=== PATIENT | female | born 1990 | race Caucasian/White ===

== ENCOUNTER 2019-02-10 23:37 | Inpatient (IN) | payer MEDICAID ==
[~2019-02-10] VITALS: Ht 157.5 cm; Wt 87.5 kg
[2019-02-11] MEDS ORDERED: HYDROmorphone 1 MG/ML AMP IVP PRN (00:45)
[2019-02-11] MEDS ORDERED: ONDANSETRON 4 MG/2 ML VIAL IVP PRN ×3 (00:45→12:00)
[2019-02-11] MEDS: LACTATED RINGERS 1,000 ML IV SCH ×2 (01:27→08:46)
[2019-02-11] MEDS ORDERED: CALC500C17 PO (02:04)
[2019-02-11] MEDS ORDERED: FERR-252 PO (02:05)
[2019-02-11] MEDS ORDERED: METHYLERGONOVINE 0.2 MG/ML AMP IM PRN ×2 (02:10→13:15)
[2019-02-11] MEDS ORDERED: PROMETHAZINE 25 MG/ML VIAL IVP PRN ×2 (02:10→18:45)
[2019-02-11] MEDS ORDERED: LACTATED RINGERS 500 ML IV ONE (02:10)
[2019-02-11] MEDS ORDERED: OXYTOCIN 10 UNITS/ML VIAL IM SCH (02:10)
[2019-02-11] MEDS ORDERED: NALBUPHINE 10 MG/ML AMP IVP PRN ×2 (02:10→12:00)
[2019-02-11 03:55] LABS: BASOPHILS % (AUTO) 0.1 % (0.0-2.0); EOSINOPHILS # (AUTO) 0.1 K/uL (0-0.4); HEMOGLOBIN 7.8 g/dL (12.0-16.0); MONOCYTES # (AUTO) 0.7 K/uL (0.8-1.0); RED BLOOD CELL COUNT(AUTO) 3.55 MIL/uL (4.20-5.40); WHITE BLOOD COUNT (AUTO) 11.8 K/uL (4.8-10.8)
[2019-02-11] MEDS ORDERED: AMPICILLIN 1,000 MG in NACL 0.9% MINI-BAG PLUS 50 ML SCH (04:00)
[2019-02-11] MEDS ORDERED: AMPICILLIN 1,000 MG in NACL 0.9% MINI-BAG PLUS 50 ML IVP SCH (04:00)
[2019-02-11 04:11] LABS: EOSINOPHILS % (AUTO) 0.7 % (0.0-4.0); LYMPHOCYTES # (AUTO) 1.6 K/uL (2.5-16.5); MEAN CORPUSCULAR HEMOGLOBIN 22 pg (27-31); MEAN CORPUSCULAR HGB CONC 31 g/dL (33-37); MEAN CORPUSCULAR VOLUME 70.5 fL (80-94); MONOCYTES % (AUTO) 5.5 % (1.7-9.3); NEUTROPHILS # (AUTO) 9.4 K/uL (1.8-7.7); NEUTROPHILS % (AUTO) 79.7 % (42.2-75.2); PLATELET COUNT (AUTO) 289 K/uL (140-450); RED CELL DISTRIBUTION WIDTH 20.2 % (11.6-13.7)
[2019-02-11 04:31] LABS: ALBUMIN 2.1 g/dL (3.4-5.0); ANION GAP 13.6 (8-16); CARBON DIOXIDE 21.9 mmol/L (21-32); CREATININE 0.4 mg/dL (0.6-1.3); POTASSIUM 3.5 mmol/L (3.5-5.1); TOTAL BILIRUBIN 0.2 mg/dL (0.0-1.0)
[2019-02-11 04:45] LABS: APPEARANCE,URINE HAZY (CLEAR); BILIRUBIN,URINE NEGATIVE (NEGATIVE); BLOOD, URINE NEGATIVE (NEGATIVE); COLOR,URINE YELLOW (YELLOW); LEUKOCYTE ESTERASE ,URINE NEGATIVE (NEGATIVE); NITRITE, URINE NEGATIVE (NEGATIVE); PH,URINE 6.5 (5.0-9.0); UGLUCOSE NEGATIVE (NEGATIVE)
[2019-02-11 04:55] LABS: RBC,URINE 0-5 /HPF (0-5)
[2019-02-11 06:12] LABS: BARBITURATE, URINE NEG. ng/ml (NEG <=200); BENZODIAZEPINE, URINE NEG. ng/mL (NEG <=200); CANNABINOID, URINE NEG. ng/mL (NEG <=50); COCAINE, URINE NEG. ng/mL (NEG <=300); OPIATE, URINE NEG. ng/mL (NEG <=2000); PHENCYCLIDINE SCREEN,URINE NEG. ng/mL (NEG <=25)
--- NOTE | 2019-02-11 06:43 | NUR ---
PATIENT HAS BEEN SCREENED AND CATEGORIZED LOW NUTRITION RISK. PATIENT WILL BE SEEN WITHIN 7 DAYS OF ADMISSION. 02/17/19 ANALI GIBSON MS, RDN
[2019-02-11 08:13] VITALS: BP 125/76
[2019-02-11] MEDS ORDERED: TERBUTALINE 1 MG/ML VIAL SUBQ SCH (08:45)
[2019-02-11] MEDS ORDERED: TERBUTALINE 1 MG/ML VIAL SUBQ ONE (10:49)
[2019-02-11] MEDS ORDERED: fentaNYL 0.05 MG/ML VIAL ONE (11:19)
[2019-02-11] MEDS ORDERED: MORPHINE PRES FREE 10 MG/10 ML AMP IV ONE (11:19)
[2019-02-11] MEDS ORDERED: ePHEDrine 50 MG/ML VIAL ONE (11:24)
[2019-02-11] MEDS ORDERED: CITRIC ACID/SODIUM CITRATE 30 ML UDC ONE (11:29)
[2019-02-11] MEDS ORDERED: KETOROLAC 30 MG/ML VIAL IVP PRN (12:00)
[2019-02-11] MEDS ORDERED: diphenhydrAMINE 50 MG/ML VIAL IVP PRN (12:00)
[2019-02-11] MEDS ORDERED: NALOXONE 0.4 MG/ML VIAL IVP PRN ×3 (12:00)
[2019-02-11] MEDS ORDERED: diphenhydrAMINE 50 MG/ML VIAL ONE (12:11)
[2019-02-11] MEDS ORDERED: ONDANSETRON 4 MG/2 ML VIAL ONE (12:11)
[2019-02-11] MEDS ORDERED: OXYTOCIN 10 UNITS in LACTATED RINGERS 1,000 ML IV SCH (13:11)
[2019-02-11] MEDS ORDERED: MEASLES, MUMPS, AND RUBELLA 1 VIAL SQVAC PRN (13:15)
[2019-02-11] MEDS: OXYTOCIN 20 UNITS/LR PREMIX 1,000 ML IV ONE ×2 (13:35→13:55)
[2019-02-11 17:25] LABS: BASOPHILS % (AUTO) 0.1 % (0.0-2.0); EOSINOPHILS % (AUTO) 0.4 % (0.0-4.0); HEMATOCRIT 23.9 % (36-48); HEMOGLOBIN 7.3 g/dL (12.0-16.0); LYMPHOCYTES # (AUTO) 1.2 K/uL (2.5-16.5); LYMPHOCYTES % (AUTO) 10.7 % (20.5-51.1); MEAN CORPUSCULAR HEMOGLOBIN 22 pg (27-31); MEAN CORPUSCULAR HGB CONC 31 g/dL (33-37); MEAN CORPUSCULAR VOLUME 70.2 fL (80-94); MONOCYTES # (AUTO) 0.8 K/uL (0.8-1.0); MONOCYTES % (AUTO) 6.8 % (1.7-9.3); PLATELET COUNT (AUTO) 260 K/uL (140-450); RED BLOOD CELL COUNT(AUTO) 3.41 MIL/uL (4.20-5.40)
[2019-02-11] MEDS ORDERED: KETOROLAC 30 MG/ML VIAL IM/IVP SCH (18:00)
[2019-02-11] MEDS ORDERED: CARBOPROST 250 MCG/ML AMP IM PRN (18:45)
[2019-02-11] MEDS ORDERED: OXYTOCIN 10 UNITS/ML VIAL ONE (18:57)
[2019-02-11] MEDS: OXYTOCIN 20 UNITS in LACTATED RINGERS 1,000 ML IV SCH (19:06)
[2019-02-12] MEDS: OXYTOCIN 20 UNITS in LACTATED RINGERS 1,000 ML IV SCH (03:29)
[2019-02-12 05:11] LABS: BASOPHILS % (AUTO) 0.2 % (0.0-2.0); EOSINOPHILS # (AUTO) 0.1 K/uL (0-0.4); EOSINOPHILS % (AUTO) 0.8 % (0.0-4.0); HEMATOCRIT 22.8 % (36-48); HEMOGLOBIN 7.1 g/dL (12.0-16.0); LYMPHOCYTES # (AUTO) 1.5 K/uL (2.5-16.5); LYMPHOCYTES % (AUTO) 15.9 % (20.5-51.1); MEAN CORPUSCULAR HEMOGLOBIN 22 pg (27-31); MEAN CORPUSCULAR HGB CONC 31 g/dL (33-37); MONOCYTES # (AUTO) 0.6 K/uL (0.8-1.0); MONOCYTES % (AUTO) 6.8 % (1.7-9.3); NEUTROPHILS # (AUTO) 7.2 K/uL (1.8-7.7); NEUTROPHILS % (AUTO) 76.3 % (42.2-75.2); PLATELET COUNT (AUTO) 252 K/uL (140-450); RED BLOOD CELL COUNT(AUTO) 3.25 MIL/uL (4.20-5.40); RED CELL DISTRIBUTION WIDTH 19.8 % (11.6-13.7); WHITE BLOOD COUNT (AUTO) 9.4 K/uL (4.8-10.8)
[2019-02-12] MEDS ORDERED: KETOROLAC 30 MG/ML VIAL IVP PRN (06:00)
[2019-02-12] MEDS: oxyCODONE/APAP 5/325 MG 1 TAB TAB PO PRN ×3 (12:31→22:46)
[2019-02-13] MEDS: oxyCODONE/APAP 5/325 MG 1 TAB TAB PO PRN ×3 (06:52→20:36)
[2019-02-13] MEDS: BISACODYL 10 MG SUPP RC SCH (09:48)
[2019-02-14] MEDS: oxyCODONE/APAP 5/325 MG 1 TAB TAB PO PRN (08:19)
[2019-02-14] MEDS: BISACODYL 10 MG SUPP RC SCH (09:47)
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
[2019-02-14] MEDS: IBUPROFEN 800 MG TAB PO PRN (20:52)
[2019-02-15] MEDS ORDERED: IBUP-2213 PO (07:41)
[2019-02-15] MEDS: IBUPROFEN 800 MG TAB PO PRN (09:59)
== END 2019-02-15 18:00 | disposition home or self-care (01) | DRG 540 ==
LOC: MLD 23:37 → MFCC 02-11 12:47
PROVIDERS: ADMIT Obstetrics & Gynecology; ATTEND Obstetrics & Gynecology
PROC: 10D00Z1 Extraction of Products of Conception, Low, Open Approach (ICD-10-PCS; principal; 2019-02-11 11:30)
DX: O32.8XX0 Maternal care for other malpresentation of fetus, not applicable or unspecified (principal); O69.81X0 Labor and delivery complicated by cord around neck, without compression, not applicable or unspecified; Z37.0 Single live birth; Z3A.39 39 weeks gestation of pregnancy
CPT/HCPCS: 36415; 76805; 80053; 80305; 81001; 85025; 86592; 86762; 86886; 86900; 86901; 86920; 87086; 87340; 87653-90; J0690; J1200; J1885; J2270; J2405; J2590; J3010; J3105; J7060; J7120; Q0092